=== PATIENT | female | born 1975 | race Hispanic/Latino ===

== ENCOUNTER 2017-04-07 09:14 | Emergency (ER) | payer BC ==
[~2017-04-07] VITALS: Ht 154.9 cm; Wt 57.0 kg
[~2017-04-07 09:14] MED LIST: IBUPROFEN600 MG PO; LABETALOL100 MG PO; LORTAB 7.5-3251 TAB PO; PRE-NATAL PO; PROCARDIA10 MG PO
[2017-04-07] MEDS ORDERED: MONTELUKAST SOD10 MG PO (10:10)
[2017-04-07] MEDS ORDERED: CRESTOR20 MG PO (10:11)
[2017-04-07] MEDS ORDERED: ASPIRIN EC LOW81 MG PO (10:11)
[2017-04-07 11:00] VITALS: BP 121/74
== END 2017-04-07 11:00 | disposition home or self-care (01) | DRG 563 ==
LOC: ED 09:14
DX: S63.616A Unspecified sprain of right little finger, initial encounter (principal); W19.XXXA Unspecified fall, initial encounter; Y92.009 Unspecified place in unspecified non-institutional (private) residence as the place of occurrence of the external cause

== ENCOUNTER 2018-09-19 08:29 | Emergency (ER) | payer OTHER, BC ==
[~2018-09-19] VITALS: Ht 154.9 cm; Wt 60.0 kg
[~2018-09-19 08:29] MED LIST changes: +ASPIRIN EC LOW81 MG PO; +CRESTOR20 MG PO; +MONTELUKAST SOD10 MG PO
[2018-09-19 10:33] LABS: URINE BILIRUBIN - DIPSTICK NEGATIVE (NEGATIVE); URINE BLOOD DIPSTICK SMALL (NEGATIVE); URINE COLOR YELLOW; URINE GLUCOSE - DIPSTICK NEGATIVE (NEGATIVE); URINE KETONE NEGATIVE (NEGATIVE); URINE LEUK ESTERASE NEGATIVE (NEGATIVE); URINE NITRITE - DIPSTICK NEGATIVE (Negative); URINE PH 5.5 (4.5-8.0); URINE PROTEIN - DIPSTICK NEGATIVE (NEG-TRACE); URINE SPECIFIC GRAVITY <=1.005; URINE UROBILINOGEN - DIPSTICK 0.2 E.U./dL (0.2)
[2018-09-19] MEDS ORDERED: FLEXERIL PO (10:58)
[2018-09-19] MEDS ORDERED: NAPROSYN500 MG PO (10:58)
[2018-09-19 11:08] VITALS: BP 123/77
== END 2018-09-19 11:16 | disposition home or self-care (01) | DRG 605 ==
LOC: ED 08:29
PROVIDERS: Emergency Medicine
DX: S60.011A Contusion of right thumb without damage to nail, initial encounter (principal); S13.9XXA Sprain of joints and ligaments of unspecified parts of neck, initial encounter; V59.40XA Driver of pick-up truck or van injured in collision with unspecified motor vehicles in traffic accident, initial encounter